=== PATIENT | male | born 1945 | race Caucasian/White ===

== ENCOUNTER 2018-07-07 07:03 | Day surgery (SDC) | payer OTHER, MEDICARE ==
[2018-07-01 11:43] LABS: BASOPHILS % (AUTO) 0.6 % (0-1); EOSINOPHILS # (AUTO) 0.1 X10'3 (0-0.9); EOSINOPHILS % (AUTO) 2.4 % (0-6); LYMPHOCYTES # (AUTO) 1.6 X10'3 (1.1-4.8); LYMPHOCYTES % (AUTO) 26.1 % (21-51); MEAN CORPUSCULAR HEMOGLOBIN 29.4 PG (27.0-31.0); MEAN CORPUSCULAR HGB CONC 33.5 g/dL (33.0-36.5); MEAN CORPUSCULAR VOLUME 87.7 FL (78-98); MEAN PLATELET VOLUME 8.4 FL (7.4-10.4); MONOCYTES # (AUTO) 0.7 X10'3 (0-0.9); NEUTROPHILS # (AUTO) 3.7 X10'3 (1.8-7.7); NEUTROPHILS % (AUTO) 59.9 % (42-75); PRE OP HEMATOCRIT 40.6 % (42.0-52.0); PRE OP HEMOGLOBIN 13.6 g/dL (14.0-17.9); PRE OP PLATELET COUNT 204 X10'3 (140-440); RED BLOOD COUNT 4.63 X10'6 (4.70-6.10); RED CELL DISTRIBUTION WIDTH 16.2 % (11.5-14.5)
[2018-07-01 11:45] LABS: CLARITY,URINE CLEAR (Clear); COLOR,URINE YELLOW (Yellow); GLUCOSE, URINE NEGATIVE (Neg); KETONES,URINE NEGATIVE (Neg); LEUKOCYTE ESTERASE ,URINE NEGATIVE (Neg); NITRITES, URINE NEGATIVE (Neg); OCCULT BLOOD,URINE NEGATIVE (Neg); PROTEIN,URINE NEGATIVE (Neg); UA COLLECTION TYPE CLN CATCH MIDSTREAM; UROBILINOGEN,URINE 0.2 E.U/dL (0.2-1.0)
[2018-07-01 11:59] LABS: ALBUMIN 3.7 G/DL (3.4-5.0); ALBUMIN/GLOBULIN RATIO 1.2 (1.1-1.5); ALKALINE PHOSPHATASE 81 IU/L (46-116); BLOOD UREA NITROGEN 16 MG/DL (7-18); BUN/CREATININE RATIO 15.7 (5.4-32.0); CALCIUM 8.6 MG/DL (8.5-10.1); CHLORIDE 105 MMOL/L (99-107); CREATININE 1.02 MG/DL (0.60-1.10); PRE OP ALT 25 U/L (30-65); PRE OP ANION GAP 7 (8-16); PRE OP AST 20 U/L (10-37); PRE OP BILIRUB, TOTAL 0.5 MG/DL (0.0-1.0); PRE OP GLUCOSE 106 MG/DL (70-104); PRE OP POTASSIUM 4.4 MMOL/L (3.4-5.1); PRE OP SODIUM 142 MMOL/L (135-145); TOTAL CARBON DIOXIDE 30.2 MMOL/L (24-32); TOTAL PROTEIN 6.9 G/DL (6.4-8.2); eGFR 72 ML/MIN
[2018-07-01 12:00] LABS: PRE OP PROTIME 10.4 SECONDS (9.0-12.0)
[2018-07-07] VITALS (12 sets, daily range): BP systolic 124–169; BP diastolic 65–98
[~2018-07-07] VITALS: Ht 185.4 cm; Wt 99.0 kg
[~2018-07-07 07:03] MED LIST: ALBU8HFA PO; AMLO-314 PO; APIX5TAB3 PO; BENA20TA82 PO; DOCUMENT DATE & TIME OF BETA-BLOCKER PO ONE; NAPR220T67 PO; OXYC10TA47 PO; OXYC20TA55 PO; SOTA80TA PO; cefazolin/dext.iso 2gm/100ml 50 ML IV ONE; famotidine 20mg tablet PO ONE; ringers solution, lacted 1,000 ML IV SCH
[2018-07-07] MEDS ORDERED: ringers solution, lacted 1,000 ML IV SCH (09:09)
[2018-07-07] MEDS ORDERED: ondansetron/PF 4mg/2ml inj IV PRN (09:10)
[2018-07-07] MEDS ORDERED: labetalol 20mg/4ml (5mg/ml) syringe IV PRN (09:10)
[2018-07-07] MEDS ORDERED: hydrALAZINE 20mg/ml inj. IV PRN (09:10)
[2018-07-07] MEDS ORDERED: morphine 4 MG/ML inj SYRINge IV PRN (09:10)
[2018-07-07] MEDS ORDERED: fentaNYL/PF 50MCG/1 ML 2ML syringe IV PRN ×2 (09:10)
[2018-07-07] MEDS ORDERED: ceFAZolin 1000mg inj ONE (09:39)
[2018-07-07] MEDS ORDERED: BUPIVAcaine/PF 2.5mg/ml (0.25%) 10ml vial ONE ×2 (09:39→10:59)
[2018-07-07] MEDS ORDERED: sevoflurane 250ml liquid IH ONE (10:02)
[2018-07-07] MEDS ORDERED: propofol inj 20 ML IV ONE (10:06)
[2018-07-07] MEDS ORDERED: dexamethasone sod phosphate 4mg/ml inj. ONE (10:06)
[2018-07-07] MEDS ORDERED: fentaNYL/PF 50MCG/1 ML 2ML syringe ONE (10:06)
[2018-07-07] MEDS ORDERED: LIDOcaine 2% (20mg/ml) 5ml vial ONE (10:06)
[2018-07-07] MEDS ORDERED: neostigmine methylsulfate 1 MG/ML 10ml vial ONE (10:06)
[2018-07-07] MEDS ORDERED: ondansetron/PF 4mg/2ml inj ONE (10:06)
[2018-07-07] MEDS ORDERED: glycopyrrolate 0.2mg/ml inj ONE (10:06)
[2018-07-07] MEDS ORDERED: rocuronium 10mg/ml inj IV ONE (10:06)
[2018-07-07] MEDS ORDERED: labetalol 20mg/4ml (5mg/ml) syringe IV ONE (10:49)
--- NOTE | 2018-07-07 11:19 | NUR ---
Received from OR via , accompanied by Anesthesiologist XAVI and report given by Anesthesiolgist. PATIENT AWAKE, MOVING ALL ETREMITIES,PATIENT VSS CHARTED, RESP EQUAL, DRESSING TO ABD CDI.
[2018-07-07] MEDS: morphine 4 MG/ML inj SYRINge IV PRN ×2 (12:04→12:24)
[2018-07-07] MEDS ORDERED: oxyCODONE SR 10mg (sust. release) tab PO PRN (12:25)
--- NOTE | 2018-07-07 13:25 | NUR ---
PATIENT D/C INSTRUCTIONS GIVEN PATIENT VERBALIZED UNDERSTANDING. PIV DC'D, CATH TIP INTACT, SCD'S INTACT. ABD DRESSING IN PLACE, DI AND SOFT. PATIENT TO PERSONAL VEHICLE WITH ALL PERSONAL BELONGINGS.
== END 2018-07-07 13:29 | disposition home or self-care (01) ==
LOC: PAS 07:03
PROVIDERS: ATTEND Surgery
DX: K42.9 Umbilical hernia without obstruction or gangrene (principal); J45.909 Unspecified asthma, uncomplicated; I10 Essential (primary) hypertension; F41.9 Anxiety disorder, unspecified; M19.90 Unspecified osteoarthritis, unspecified site; E66.9 Obesity, unspecified
CPT/HCPCS: 36415; 49585; 71046; 80053; 81003; 82948; 85025; 85610; 85730; 93005; A6222; A6253; A6449; C1781; J0690; J1100; J2001; J2270; J2405; J2704; J2710; J3010; J3490; J7120; A7000

== ENCOUNTER 2022-03-19 11:09 | Day surgery (SDC) | payer MEDICARE ==
[2022-03-14 11:52] LABS: BASOPHILS # (AUTO) 0.1 X10'3 (0-0.2); BASOPHILS % (AUTO) 1.8 % (0-1); EOSINOPHILS # (AUTO) 0.7 X10'3 (0-0.9); HEMATOCRIT 36.7 % (42.0-52.0); LYMPHOCYTES % (AUTO) 27.9 % (21-51); MEAN CORPUSCULAR HEMOGLOBIN 25.4 PG (27.0-31.0); MEAN CORPUSCULAR HGB CONC 32.7 g/dL (33.0-36.5); MEAN CORPUSCULAR VOLUME 77.6 FL (78-98); MEAN PLATELET VOLUME 8.2 FL (7.4-10.4); MONOCYTES # (AUTO) 0.9 X10'3 (0-0.9); NEUTROPHILS # (AUTO) 3.6 X10'3 (1.8-7.7); NEUTROPHILS % (AUTO) 49.3 % (42-75); PLATELET COUNT 197 X10'3 (140-440); RED BLOOD COUNT 4.72 X10'6 (4.70-6.10); RED CELL DISTRIBUTION WIDTH 17.9 % (11.5-14.5); WHITE BLOOD COUNT 7.2 X10'3 (4.5-11.0)
[2022-03-14 12:01] LABS: ALBUMIN 3.4 G/DL (3.4-5.0); ANION GAP 7 (8-16); BLOOD UREA NITROGEN 23 MG/DL (7-18); BUN/CREATININE RATIO 16.7 (5.4-32.0); CALCIUM 8.3 MG/DL (8.5-10.1); CHLORIDE 107 MMOL/L (99-107); CREATININE 1.38 MG/DL (0.60-1.10); GLUCOSE 95 MG/DL (70-104); POTASSIUM 4.4 MMOL/L (3.5-5.1); SODIUM 141 MMOL/L (135-145); TOTAL CARBON DIOXIDE 27.4 MMOL/L (24-32); eGFR 50 ML/MIN
[2022-03-14 12:04] LABS: APTT 27 SECONDS (22-32)
[~2022-03-19] VITALS: Ht 182.9 cm; Wt 89.1 kg
[~2022-03-19 11:09] MED LIST changes: -DOCUMENT DATE & TIME OF BETA-BLOCKER PO ONE; -cefazolin/dext.iso 2gm/100ml 50 ML IV ONE; -famotidine 20mg tablet PO ONE; -ringers solution, lacted 1,000 ML IV SCH
[2022-03-19] MEDS ORDERED: BACL10TA2 PO (11:49)
[2022-03-19] MEDS ORDERED: SOTA80TA46 PO (11:49)
[2022-03-19] MEDS ORDERED: ASPI-1265 PO (11:49)
[2022-03-19] MEDS ORDERED: FLO0.4C PO (11:49)
[2022-03-19] MEDS ORDERED: CARSR60C PO (11:49)
[2022-03-19] MEDS ORDERED: MIDAZolam 1mg/ml 10ml vial IV ONE (11:55)
[2022-03-19] MEDS ORDERED: fentaNYL/PF 50MCG/1 ML 2ML syringe IV ONE (11:55)
[2022-03-19 12:00] VITALS: BP 169/73
== END 2022-03-19 12:00 | disposition home or self-care (01) ==
LOC: SSTAY O 11:09
PROVIDERS: ATTEND Student in an Organized Health Care Education/Training Program
DX: I48.91 Unspecified atrial fibrillation (principal); Z53.8 Procedure and treatment not carried out for other reasons; I10 Essential (primary) hypertension; Z88.2 Allergy status to sulfonamides; Z79.82 Long term (current) use of aspirin; Z98.890 Other specified postprocedural states; Z79.899 Other long term (current) drug therapy
CPT/HCPCS: 36415; 80048; 85025; 85610; 85730; 93005; A4620; J7030

== ENCOUNTER 2023-06-10 11:10 | Day surgery (SDC) | payer MEDICARE ==
[2023-06-06 10:54] LABS: BASOPHILS # (AUTO) 0.1 X10'3 (0-0.2); BASOPHILS % (AUTO) 1.1 % (0-1); EOSINOPHILS # (AUTO) 0.4 X10'3 (0-0.9); EOSINOPHILS % (AUTO) 5.1 % (0-6); HEMATOCRIT 34.3 % (42.0-52.0); HEMOGLOBIN 10.9 g/dl (14.0-17.9); LYMPHOCYTES # (AUTO) 1.6 X10'3 (1.1-4.8); LYMPHOCYTES % (AUTO) 23.4 % (21-51); MEAN CORPUSCULAR HEMOGLOBIN 26.2 PG (27.0-31.0); MEAN CORPUSCULAR HGB CONC 31.9 g/dL (33.0-36.5); MEAN CORPUSCULAR VOLUME 82.3 FL (78-98); MEAN PLATELET VOLUME 8.1 FL (7.4-10.4); MONOCYTES # (AUTO) 0.8 X10'3 (0-0.9); MONOCYTES % (AUTO) 10.9 % (2-12); NEUTROPHILS # (AUTO) 4.2 X10'3 (1.8-7.7); NEUTROPHILS % (AUTO) 59.5 % (42-75); PLATELET COUNT 270 X10'3 (140-440); RED BLOOD COUNT 4.17 X10'6 (4.70-6.10); RED CELL DISTRIBUTION WIDTH 22.4 % (11.5-14.5)
[2023-06-06 11:03] LABS: ALBUMIN 3.3 G/DL (3.4-5.0); ANION GAP 6 (8-16); BLOOD UREA NITROGEN 40 MG/DL (7-18); BUN/CREATININE RATIO 25.2 (10.0-20.0); CALCIUM 8.6 MG/DL (8.5-10.1); CHLORIDE 105 MMOL/L (99-107); CREATININE 1.59 MG/DL (0.60-1.10); GLUCOSE 89 MG/DL (70-104); POTASSIUM 4.6 MMOL/L (3.5-5.1); SODIUM 139 MMOL/L (135-145); TOTAL CARBON DIOXIDE 28.5 MMOL/L (24-32); eGFR 43 ML/MIN
[2023-06-06 11:06] LABS: APTT 32 SECONDS (22-32); INR 1.1 INR; PROTHROMBIN TIME 11.9 SECONDS (9.0-12.0)
[2023-06-06 16:40] LABS: ACANTHOCYTES FEW; ANISOCYTOSIS 3+; ELLIPTOCYTES 1+; HYPOCHROMASIA 1+; PLATELET ESTIMATE NORMAL; POLYCHROMASIA FEW; SPHEROCYTES FEW
[2023-06-10] VITALS (9 sets, daily range): BP systolic 90–132; BP diastolic 50–74; PULSE 64–112; RESP 12; TEMP 98.2; O2SAT 100
[~2023-06-10] VITALS: Ht 182.9 cm; Wt 77.7 kg
[~2023-06-10 11:10] MED LIST changes: -ALBU8HFA PO; -AMLO-314 PO; +ASPI-1265 PO; +BACL10TA2 PO; +CARSR60C PO; +FLO0.4C PO; +FURO-150 PO; +IBAN150T21 PO; +METO-384 PO; -NAPR220T67 PO; -OXYC20TA55 PO; +POTA-192 PO; -SOTA80TA PO
[2023-06-10] MEDS ORDERED: MIDAZolam 1mg/ml 10ml vial IV ONE (11:35)
[2023-06-10] MEDS ORDERED: normal saline 1000ml 1,000 ML IV SCH (11:35)
[2023-06-10] MEDS ORDERED: fentaNYL/PF 50MCG/1 ML 2ML syringe IV ONE (11:35)
[2023-06-10] MEDS ORDERED: SOTA80TA (11:36)
== END 2023-06-10 13:50 | disposition home or self-care (01) ==
LOC: SSTAY O 11:10
PROVIDERS: ATTEND Student in an Organized Health Care Education/Training Program
DX: I48.91 Unspecified atrial fibrillation (principal); I10 Essential (primary) hypertension; Z88.2 Allergy status to sulfonamides; Z88.8 Allergy status to other drugs, medicaments and biological substances; Z79.899 Other long term (current) drug therapy; Z79.01 Long term (current) use of anticoagulants
CPT/HCPCS: 36415; 80048; 85025; 85610; 85730; 92960; 93005; J2250; J3010; J7030; 85008; A4620

== ENCOUNTER 2025-01-25 20:39 | Inpatient (IN) | payer MEDICARE ==
[~2025-01-25] VITALS: Ht 182.9 cm; Wt 95.6 kg
[~2025-01-25 20:39] MED LIST changes: -ASPI-1265 PO; -BACL10TA2 PO; -CARSR60C PO; -FLO0.4C PO; -METO-384 PO; -OXYC10TA47 PO; -POTA-192 PO; +SOTA80TA; +TAMS-55 PO
--- NOTE | 2025-01-25 20:47 | ELECTROCARDIOGRAPH REPORT ---
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 Thompson Washington Measurements Intervals [place] Rate: 103 P: 0 [place]: 0 QRS: 151 QRSD: 70 T: 0 QT: 470 QTc: 616 Interpretive Statements Atrial fibrillation Ventricular premature complex Anterior infarct, age indeterminate Prolonged QT interval Electronically Signed On 01-25-2025 21:23:[address] Thompson Washington Please click the below link to view image of tracing.
[2025-01-25] MEDS ORDERED: diltiazem-NS 100mg/100ml 100 ML IV ONE (20:55)
[2025-01-25] MEDS: diltiazem-NS 100mg/100ml 100 ML IV SCH (21:34)
[2025-01-25 21:38] LABS: RED CELL DISTRIBUTION WIDTH 22.4 % (11.5-14.5)
[2025-01-25 21:39] LABS: MEAN PLATELET VOLUME 8.7 FL (7.4-10.4)
[2025-01-25 21:49] LABS: CREATININE 1.32 MG/DL (0.60-1.10); PRO BRAIN NATRIURETIC PEPTIDE 7902 PG/ML (0-450); TOTAL CARBON DIOXIDE 34.1 MMOL/L (24-32); eCRCL 45 ML/MIN; eGFR 53 ML/MIN
[2025-01-25 22:04] LABS: ELLIPTOCYTES 1+; LARGE PLATELETS FEW; PLATELET ESTIMATE NORMAL
--- NOTE | 2025-01-25 23:35 | Physician Documentation ---
History of Present Illness ~ Chief Complaint: Weakness Stated Complaint: XFER Time Seen by MD: 23:32 OK to notify your PCP?: Yes Source: patient, RN/MD, EMS, RN notes reviewed, EMS notes reviewed, old records Mode of Arrival: EMS Exam Limitations: no limitations HPI This patient was a transfer from [place]. He has a multiple medical problems. He was found to have rapid AFib with RVR as well as some heart failure. Patient is heart rates were in the 130s to 140s. Patient was started on a Cardizem drip. BNP was 5000 today he has signs [place] [address]. Patient has been complaining of generalized weakness, fatigue, shortness of breath, and edema. Patient today saw his primary care doctor for these issues, which he states have been progressively worsening over the past 4- 6 months. Today he went home, felt significantly worse, and came into the hospital at which time he was found to have a high blood pressure of 180 sy stolic. Patient is normally not on oxygen, but his oxygen saturation was on 4 L at 94%. His policy specialist is Dr. Cohen who stated there was no signs of infection. Patient was then transferred to our facility for further workup and care. His troponin was negative. He denies any chest pain, abdominal pain, or recent illnesses. Most recent echocardiogram on 11/29/2024 showed a dilated right atrium documented is moderate, LVEF of 60%, right ventricle with normal size with borderline dilation and decrease systolic function without collapse. Patient was put in bed seven. Day of Onset: Jan 25, 2025 Medication Reconciliation Allergies: Coded Allergies: Sulfa (Sulfonamide Antibiotics) (Verified Allergy, Unknown, RASH, 07/01/18) Scheduled Apixaban (Eliquis), 1 TAB PO DAILY, (Reported) Ascorbic Acid (Vitamin C), 1 TAB PO DAILY, (Reported) Benazepril HCl (Benazepril HCl), 1 TAB PO DAILY, (Reported) Budesonide/Glycopyr/Formoterol (Breztri Aerosphere Inhaler), 2 PUFFS INH Q12H, (Reported) Furosemide (Lasix), 1 TAB PO DAILY, (Reported) Ibandronate Sodium (Ibandronate Sodium), 1 TAB PO Q30D, (Reported) Montelukast Sodium (Montelukast Sodium), 1 TAB PO DAILY, (Reported) Silver Sulfadiazine (Silvadene), 1 APPLIC TOP DAILY, (Reported) Sotalol Hcl* (Betapace*), 80 MG PO BID, (Reported) Tamsulosin Hcl* (Flomax*), 1 CAP PO BID, (Reported) [calcium], 600 MG PO DAILY, (Reported) [pro air respiclick], 2 PUFF INH Q4H, (Reported) Scheduled PRN Buprenorphine Hcl (Buprenorphine Hcl), 2 TAB SL DAILY PRN for pain, (Reported) Discontinued Medications Apixaban (Eliquis), 1 TAB PO BID, (Reported) Discontinued Reason: patient no longer taking Benazepril Hcl* (Lotensin*), 1 TAB PO DAILY, (Reported) Discontinued Reason: patient no longer taking Furosemide* (Lasix*), 1 TAB PO DAILY, (Reported) Discontinued Reason: patient no longer taking Ibandronate Sodium (Ibandronate Sodium), 1 TAB PO Q30D, (Reported) Discontinued Reason: patient no longer taking Sotalol Hcl (Sotalol), 0.5 BID, (Reported) Discontinued Reason: patient no longer taking Tamsulosin Hcl* (Flomax*), 1 TAB PO DAILY, (Reported) Discontinued Reason: patient no longer taking Past Medical History Past Medical History: Seizures, Atrial Fibrillation, Congestive Heart Failure, High Cholesterol, Hypertension, Asthma, Anemia, Acute Kidney Injury, Anxiety Past Surgical History: orthopedic surgeries, tonsillectomy Smoking Status: Never smoker Alcohol Use: None Drug Use: none Review of Systems All Other Systems at this time: Reviewed and Negative Respiratory: Reports: shortness of breath Cardiovascular: Reports: edema; Denies: chest pain Physical Exam Vital Signs: RN Vital Signs have been reviewed: Yes, Temperature: 98.0, Source: Oral, Heart Rate: 107, Respiratory Rate: 26, BP: 136/115, Pulse Oximetry: 100, Weight: 95.600 Oxygen Flow Rate: 2.0 Physical Exam General: The patient is well developed, well nourished, nontoxic appearing and is in no acute distress. Skin: Generalized anasarca with some serous weeping noted primarily from the upper and lower extremities. Thick chronic venous stasis changes of the skin. No open wounds or bleeding. Chronic atrophic skin changes overlying the lower extremities. Skin otherwise pink, warm and dry with no rashes. HEENT: Head was normocephalic and atraumatic. Eyes - pupils equal, round, reactive to light and accommodation. Extraocular movements were intact. Conjunctivae were nonicteric. The mouth and oropharynx were clear with moist mucous membranes. There were no pharyngeal exudates or erythema. Neck: Supple and nontender. There was no jugular venous distention, lymphadenopathy, thyromegaly or masses. Chest: Clear to auscultation bilaterally without wheezes, rales or rhonchi. No accessory muscle use. No dullness to percussion. Heart: Rapid with irregularly irregular rhythm. S1, S2. No murmurs. Palpation of the chest wall was normal. No rubs or thrills. Abdomen: Soft, nontender and nondistended. Positive bowel sounds. No guarding or rebound. No hepatosplenomegaly or palpable masses. Extremities: No cyanosis, clubbing or edema. The patient moves all extremities. Pulses were equal and symmetric. Neurologic: Cranial nerves II-XII were intact. Sensation was intact to light touch throughout. Motor strength was 5/5 in all four extremities. Deep tendon reflexes were intact in both upper and lower extremities. Psychologic: The patient was oriented to person, place and time. The patient demonstrated appropriate judgement and insight. Progress Progress Note 2351: Paged Hospitalist 0004: Case discussed with hospitalist who agrees to evaluate patient for admission. Results/Orders Reviewed/noted all lab results: Yes Results/Orders Orders - RIAZ CAMPOS MD Monitor (01/25/25 20:42) Saline Lock (01/25/25 20:42) Oxygen (01/25/25 20:42) Electrocardiogram (01/25/25 20:42) Page Hospitalist (01/25/25 23:51) Fill Out Med Reconciliation (01/25/25 23:51) Completed Orders - RIAZ CAMPOS MD Cbc/Diff (01/25/25 20:42) BMP (01/25/25 20:42) PBNP (01/25/25 20:42) Electrocardiogram (01/25/25 20:42) Hs Troponin I W Calculations (01/25/25 20:42) Hs Troponin I W Calculations (01/25/25 22:42) Hs Troponin I W Calculations (01/25/25 23:42) Hgb A1c (01/25/25 21:01) Medications Received in ER Medications (Trade) Dose Ordered Sig/Kori Route PRN Reason Start Time Stop Time Status Last Admin Dose Admin Diltiazem HCl 100 ml @ 5 mls/hr Q20H IV 01/25/25 21:00 01/26/25 16:59 01/25/25 21:34 5 MLS/HR Vital Signs 01/25/25 01/25/25 01/25/25 01/25/25 21:00 21:34 21:43 22:36 Temp 98.0 98.0 98.0 Pulse 91 98 104 106 Resp 18 16 17 B/P (MAP) 150/86 144/79 (100) 127/88 (101) Pulse Ox 100 99 100 O2 Flow Rate 2.0 2.0 2.0 01/25/25 01/25/25 22:43 22:45 Pulse 107 Resp 26 B/P (MAP) 136/115 Laboratory Tests Test 01/25/25 21:01 01/25/25 23:16 White Blood Count 6.5 Red Blood Count 5.39 Hemoglobin 10.1 L Hematocrit 33.5 L Mean Corpuscular Volume 62.0 L Mean Corpuscular Hemoglobin 18.7 L Mean Corpuscular Hemoglobin Concent 30.2 L Red Cell Distribution Width 22.4 H Platelet Count 157 Mean Platelet Volume 8.7 Neutrophils (%) (Auto) 58.4 Lymphocytes (%) (Auto) 24.9 Monocytes (%) (Auto) 13.4 H Eosinophils (%) (Auto) 2.1 Basophils (%) (Auto) 1.2 H Neutrophils # (Auto) 3.8 Lymphocytes # (Auto) 1.6 Monocytes # (Auto) 0.9 Eosinophils # (Auto) 0.1 Basophils # (Auto) 0.1 CBC Comment Platelet Estimate Normal Large Platelets Few Red Blood Cell Morphology Perf Polychromasia Few Hypochromasia 2+ Basophilic Stippling Spherocytes Few Target Cells Few [place] Cells Elliptocytes 1+ Schistocytes Few Sodium Level 139 Potassium Level 4.8 Chloride Level 99 Carbon Dioxide Level 34.1 H Anion Gap 6 L Blood Urea Nitrogen 30 H Creatinine 1.32 H Estimated GFR/1.73 m2 53 BUN/Creatinine Ratio 22.7 H Glucose Level 90 Hemoglobin A1c 6.1 Calcium Level 8.4 L Troponin I High Sensitivity 70 71 Pro-B-Type Natriuretic Peptide 7902 H Albumin 2.6 L Chemistry Comments Troponin I High Sens Percent Delta 1 Troponin I Hi Sens Absolute Change 1 Re-Evaluation Re-Evaluation : Re-Evaluation: Improved Progress Patient was seen and examined. Patient was given reassurance. Patient was transferred from [facility] for generalized weakness fatigue. Patient arrived in a Cardizem drip for rapid AFib with a RVR. Heart rates currently at 1:10 a.m. upon arrival on Cardizem drip was continued. Patient's laboratory work shows some microcytic anemia with a hemoglobin of 10 and hematocrit of 33 with a MCV of 62. Chemistry shows negative troponins but there is some dehydration with a BUN of 30 and creatinine 1.32 and proBNP is elevated 7900. Coagulation shows a PT of 15.1 urinalysis was reassuring and within normal limits. Patient was then admitted to the hospitalist service for further workup and care. Etiologies for the rapid AFib with RVR were considered such as medical noncompliance, electrolyte abnormalities, ischemic heart disease, infectious etiologies such as pneumonia were all considered. Pulmonary embolism was also considered Continuous conveyor monitor interpretation shows rapid AFib with RVR heart rate 110s, abnormal, my interpretation. Pulse oximetry monitor interpretation shows 97% on 1 L oxygen, abnormal, my i nterpretation. 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 Riaz Campos Measurements Intervals [place] Rate: 103 P: 0 [place]: 0 QRS: 151 QRSD: 70 T: 0 QT: 470 QTc: 616 Interpretive Statements Atrial fibrillation Ventricular premature complex Anterior infarct, age indeterminate Prolonged QT interval Electronically Signed On 01-25-2025 21:23:[address] Riaz Campos Please click the below link to view image of tracing. EKG Date and Time:01/25/252043 Electronically Signed by: RIAZ CAMPOS MD Date and Time: 01/25/252122 NO PRIMARY CARE PROVIDER~ cc: ~ Heart Score: Heart Score Response (Comments) Value History Slightly Suspicious 0 EKG Repolarization Disturb 1 Age >65 2 Risk Factors >3 or Hx ASHD 2 Troponin Normal limit 0 Total 5 Medical Decision Making Additional info obtained from: old records Differential Dx:Considerations: Include: anemia, CVA, dehydration, dysrhythmia, electrolyte imbalance, encephalopathy, hypoglycemia, hypotension, hypovolemia, myocardial infarction, pulmonary embolus, renal failure, other Departure Time of Disposition: 23:51 Disposition: ADMITTED INPATIENT Admitted to Inpatient Unit: yes, to hospitalist Admission Level of Care: PCU with Tele Impression: Primary Impression: Atrial fibrillation with RVR Additional Impressions: Acute on chronic heart failure Qualified Codes: I50.813 - Acute on chronic right heart failure Accelerated hypertension Hypoxia Microcytic anemia Condition: Guarded Referrals: NO PRIMARY CARE PROVIDER (PCP) Education Educated: Patient Educated regarding: diagnosis Critical Care Note Total Time (mins): 33 Critical Care Note The very real possibility of a deterioration of this patient's condition required the highest level of my preparedness for sudden, emergent intervention. I provided critical care services, which included medication orders, frequent reevaluations of the patient's condition and response to treatment, ordering and reviewing test results, and discussing the case with various consultants. Excludes time spent performing separately billable procedures. The critical care time associated with the care of the patient was.33 min Signature Scribe Signature: Scribed for Riaz Campos MD by Yamilet Joseph. 01/25/25 23:51 Attestation: The note accurately reflects work and decisions made by me.Riaz Campos MD 01/26/25 03:32 RIAZ CAMPOS MD Jan 25, 2025 23:35
[2025-01-26] VITALS (9 sets, daily range): BP systolic 80–126; BP diastolic 50–73; PULSE 67–98; RESP 12–22; TEMP 96.6–98.4; O2SAT 95–100
[2025-01-26] MEDS: COMMUNICATION ORDER 1 EA MISC MC ONE ×2 (00:24)
[2025-01-26] MEDS ORDERED: magnesium Cl slow-release 64mg tablet PO PRN (00:45)
[2025-01-26] MEDS ORDERED: potassium Cl 40MEQ/1/2NS 520ml 520 ML IV PRN (00:45)
[2025-01-26] MEDS ORDERED: magnesium sulf-water 4G/100mL 100 ML IV PRN (00:45)
[2025-01-26] MEDS ORDERED: magnesium sulf-water 2g/50mL 50 ML IV PRN (00:45)
[2025-01-26] MEDS ORDERED: potassium Cl 20 mEq SR tablet PO PRN ×2 (00:45)
--- NOTE | 2025-01-26 01:08 | HISTORY AND PHYSICAL-Residence ---
History & Physical Providers to CC Resident Creating Document: CONRADODEVIN TREJO, RES ~ History of Present Illness Reason for Admit\Complaint: generalised edema, SOB, A.fib History of Present Illness 89-year-old male with a past medical history of hypotension, asthma, atrial fibrillation, anemia, chronic kidney disease, edema of lower limbs, stasis dermatitis lower extremities, has presented to the ED of [place] with chief complaints of generalized swelling and shortness of breath. This patient is a transfer from [place]. Patient reports that his scrotum swelled up to a point that he was unable to walk since a week. He was found to have rapid AFib with RVR in [place]. Patient is normally not on oxygen, but his oxygen saturation was on 4 L at 94%. Patient was then transferred to our facility for further workup and care. Patient currently in sinus rhythm. His troponin was negative. He denies any chest pain, abdominal pain, nausea, vomiting, palpitations, headache, blurring of vision, burning micturition, melena. Allergies: Coded Allergies: Sulfa (Sulfonamide Antibiotics) (Verified Allergy, Unknown, RASH, 07/01/18) Home Medications Home Medications Active Reported Sotalol (Sotalol Hcl) 80 Mg Tablet 0.5 BID Lasix* (Furosemide) 20 Mg Tablet 1 Tab PO DAILY Ibandronate Sodium 150 Mg Tablet 1 Tab PO Q30D Flomax* (Tamsulosin HCl) 0.4 Mg Cap.sr.24h 1 Tab PO DAILY Eliquis (Apixaban) 5 Mg Tablet 1 Tab PO BID Lotensin* (Benazepril HCl) 20 Mg Tablet 1 Tab PO DAILY Past Social History Alcohol Use: None Drug Use: None ROS All Other Systems: Reviewed and Negative ROS Constitutional: No fever, chills, dizziness, generalized edema present, scrotum is swollen up Eyes: No pain, erythema, discharge, blurring of vision ENT: No sore throat, epistaxis, tinnitus Cardiovascular:No chest pain, palpitations, syncope, , paroxysmal nocturnal dyspnea Respiratory: No hemoptysis. Gastrointestinal: no nausea , no vomiting. Reports constipation, no hematemesis, melena or fresh blood Musculoskeletal: chronmic edema. Integumentary: No change in skin, hair, No swelling, scars present on lower right foot, no abrasions Neurologic: No weakness,No headache, neck pain, numbness of left foot Psychiatric: No delusions, depression, loss of interest in normal activity or change in sleep pattern, hallucinations, suicidal ideations Endocrine: , no weakness. polydipsia, polyuria, change in appetite, heat or cold intolerance, sweating, dry skin Hematological: No bleeding, petechiae, bruising Allergies: No asthma or urticaria Respiratory: Reports: shortness of breath Cardiovascular: Reports: edema; Denies: chest pain Exam Vitals: Vital Signs Date Time Temp Pulse Resp B/P (MAP) Pulse Ox O2 Delivery O2 Flow Rate FiO2 01/25/25 22:45 26 01/25/25 22:43 107 01/25/25 22:36 98.0 100 2.0 General: Awake , alert and oriented to time,place, person, not in acute distress HEENT: Atraumatic, normocephalic, PEERLA, anicteric sclera ; pink conjunctiva, m oist mucosa membrane Neck: Trachea midline. Supple, normal range of motion, no JVD Cardiac: S1, S2 heard, Regular rate and rhythm, without murmurs, rubs, or gallops. Chest and Respiratory: Equal breath sounds bilaterally, patient on oxygen & no rhonchi , Chest wall is symmetric and without deformity. Abdomen: Abdomen symmetric, non-distended, no tenderness , no guarding or rebound tenderness,normal bowel sounds , normoactive, no hepatosplenomegaly MSK: full range of motion of all extremities. There is no joint pain or joint swelling or joint erythema. There is no muscle pain or tenderness. Extremities: warm, No cyanosis, clubbing edema of lower extremities, discoloration of lower extremity, peripheral pulses well felt Neurological: Speech is clear, alert, and oriented x 4. No motor or sensory deficit, deep tendon reflexes normal, cerebellar intact. Cranial nerves II-XII intact. Skin: Warm and dry Psychiatry: Affect and mood are normal Diagnostic Data Last Recorded Lab Results: 01/25/25210001/26/25 0305 Additional Plan Atrial fibrillation with RVR- Patient currently in sinus rhythm. Current heart rate-100 Patient currently on diltiazem IV drip Patient does not complain of any palpitations or chest pain Acute exacerbation of CHF with preserved ejection fraction- Echocardiogram done in November 2024- LVEF 60%,Right ventricle normal size with borderline dilation, decreased systolic function without collapse. ProBNP-7902. Patient currently on 2L oxygen, does not use oxygen at home. Anasarca likely secondary to CHF exacerbation. Patient given 60 mg Lasix IV now Continue 40 mg b.i.d. from tomorrow. Acute hypoxemic respiratory failure- Patient does not use oxygen at home Currently on 2 L of oxygen. Chronic microcytic hypochromic anemia- Hb- 10.1 MCV-62 Occult blood stool ordered. Follow up iron studies ordered. Follow up Chronic kidney disease- Creatinine1.32 BUN-30 Urine lytes ordered Code Status: Full Code Line/tube: PIV DVT prophylaxis: heparin Nutrition: Heart healthy PT: Yes Devin Simmons PGY-1 Addendum I personally reviewed the chart, labs and imaging and reviewed the patient with the team. I agree with the assessment and plan as documented by the resident. Patient was seen through remote audio-visual assessment through HIPAA compliance setup. Date of Service: Jan 26, 2025 Billing Provider: HEATHER DOYLE MD, PREETHI, RES Jan 26, 2025 01:08 HEATHER DOYLE MD Jan 26, 2025 21:40
[2025-01-26] MEDS ORDERED: APIX5TAB3 PO (01:18)
[2025-01-26] MEDS ORDERED: calcium PO (01:19)
[2025-01-26] MEDS ORDERED: ASCO-482 PO (01:20)
[2025-01-26] MEDS ORDERED: FURO-149 PO (01:21)
[2025-01-26] MEDS ORDERED: SILV20CR13 TOP (01:21)
[2025-01-26] MEDS ORDERED: ALBUTEROL INH (01:23)
[2025-01-26] MEDS ORDERED: MONT-40 PO (01:23)
[2025-01-26] MEDS ORDERED: SOTA80TA73 PO (01:24)
[2025-01-26] MEDS ORDERED: BUDE10.7 INH (01:24)
[2025-01-26] MEDS ORDERED: TAMS-55 PO (01:25)
[2025-01-26] MEDS ORDERED: BUPR8TAB4 SL (01:26)
[2025-01-26] MEDS ORDERED: BENA20TA83 PO (01:26)
[2025-01-26] MEDS ORDERED: BUPRENORPHINE HCL 8 MG SL PRN (01:30)
[2025-01-26 02:00] LABS: INR 1.5 INR
[2025-01-26 02:02] LABS: LEUKOCYTE ESTERASE ,URINE NEGATIVE (Neg); NITRITES, URINE NEGATIVE (Neg); OCCULT BLOOD,URINE TRACE-INTACT (Neg)
[2025-01-26 02:03] LABS: UA COLLECTION TYPE FOLEY CATH
[2025-01-26] MEDS: furosemide 10 MG/1 ML 10ml inj IV ONE (02:04)
[2025-01-26 02:11] LABS: HYALINE CASTS 0-3 /LPF (NEGATIVE); MUCUS STRANDS FEW /LPF (Neg); SQUAMOUS EPITHELIAL CELL,UR FEW /LPF (FEW)
[2025-01-26] MEDS: HYDROcodone/acetaminophen 5mg/325mg tablet PO PRN (02:21)
[2025-01-26 03:33] LABS: OSMOLALITY UA 356.0 MOSM/K (50-1400)
[2025-01-26 04:00] LABS: CREATININE,URINE RANDOM 14.0 MG/DL
[2025-01-26] MEDS: diltiazem-NS 100mg/100ml 100 ML IV SCH (04:50)
[2025-01-26] MEDS: diltiazem 30mg tablet PO ONE (05:25)
[2025-01-26] MEDS ORDERED: heparin, porcine 5000 units/ml vial SQ SCH (08:00)
[2025-01-26] MEDS: K and/or MAG REPLACEMENT MC SCH (08:00)
[2025-01-26] MEDS: docusate sod 100mg capsule PO SCH (09:13)
[2025-01-26] MEDS: SODIUM ZIRCONIUM CYCLOSILICATE 10 GM POWD.PACK PO ONE (10:32)
[2025-01-26] MEDS ORDERED: NORMAL SALINE IV ONE (11:35)
[2025-01-26] MEDS: PERFLUTREN PROTEIN-A MICROSPHR (Optison) 0.22 MG/ML 3ML VIAL IV ONE (11:35)
[2025-01-26] MEDS: iron dextran complex inj. 25 MG in normal saline 100ml IV soln 99.5 ML IV ONE (11:35)
[2025-01-26] MEDS ORDERED: IRON DEXTRAN COMPLEX IV ONE (11:35)
[2025-01-26] MEDS: iron dextran complex inj. 25 MG in normal saline 100ml IV soln 100 ML IV ONE (12:52)
[2025-01-26] MEDS: acetaZOLAMIDE IV 500mg inj IV ONE (12:53)
[2025-01-26] MEDS: mag hydrox/Alum hydrox/simeth 30ml oral suspension PO PRN (13:03)
[2025-01-26] MEDS: EMPAGLIFLOZIN 10 MG TABLET PO SCH (13:32)
[2025-01-26] MEDS: iron dextran complex inj. 75 MG in normal saline 100ml IV soln 100 ML IV ONE (14:50)
[2025-01-27] VITALS (9 sets, daily range): BP systolic 95–139; BP diastolic 51–73; PULSE 68–91; RESP 12–23; TEMP 97.1–98.6; O2SAT 92–98
[2025-01-27 07:43] LABS: MEAN PLATELET VOLUME 9.0 FL (7.4-10.4); RED CELL DISTRIBUTION WIDTH 23.2 % (11.5-14.5)
[2025-01-27] MEDS ORDERED: furosemide 10 MG/1 ML 10ml inj IV SCH (08:00)
[2025-01-27] MEDS: iron dextran complex inj. 100 MG in normal saline 100ml IV soln 100 ML IV SCH (08:02)
[2025-01-27] MEDS: magnesium hydroxide 30ml (MOM) UD suspension PO PRN (08:02)
--- NOTE | 2025-01-27 08:24 | RADIOLOGY REPORT ---
CHEST RADIOGRAPH Indication: resp failire, chf Technique: Single frontal view of the chest was obtained Comparison: CHEST 1 VIEW on DOS: 01/25/25 FINDINGS: Lines and Tubes: None Lungs: No focal consolidation. Pleura: No effusion. No pneumothorax. Cardiomediastinal contours: Cardiomegaly. Bones: No acute osseous abnormality. IMPRESSION: Cardiomegaly with CHF
[2025-01-27 08:39] LABS: CHOL/HDL RATIO 3.4 (0.00-4.99); CREATININE 1.54 MG/DL (0.60-1.10); LDL CHOLESTEROL 61 MG/DL (50-100); PRO BRAIN NATRIURETIC PEPTIDE 5370 PG/ML (0-450); TOTAL CARBON DIOXIDE 33.4 MMOL/L (24-32); eCRCL 44 ML/MIN; eGFR 44 ML/MIN
[2025-01-27] MEDS ORDERED: ceFAZolin/D5W- 1GM premix 50 ML IV ONE (16:25)
[2025-01-27 16:51] LABS: CREATININE 1.65 MG/DL (0.60-1.10); TOTAL CARBON DIOXIDE 37.7 MMOL/L (24-32); eCRCL 41 ML/MIN; eGFR 41 ML/MIN
[2025-01-27] MEDS ORDERED: iron dextran complex inj. 25 MG in normal saline 50ml IV soln 50 ML IV ONE (17:15)
[2025-01-27] MEDS ORDERED: normal saline 1000ml 1,000 ML IV SCH (17:15)
[2025-01-27] MEDS ORDERED: iron dextran complex inj. 75 MG in normal saline 100ml IV soln 100 ML IV ONE (17:15)
--- NOTE | 2025-01-27 17:19 | RADIOLOGY REPORT ---
Indication: edema of scrotum Technique: Real-time ultrasound images through the scrotum. Comparison: None Findings: Right testicle measures 2.6 x 2 x 2.9 cm. It has normal echogenicity and echotexture, with no focal solid or cystic mass. There is normal flow on color Doppler, with normal waveforms. Heterogeneous deepika earance of the right epididymis. Left testicle measures 2.6 x 2.8 x 2 cm. It has normal echogenicity and echotexture, with no focal s olid or cystic mass. There is normal flow on color Doppler, with normal waveforms. The left epididyma l head measures 10 mm, and has no focal masses. There is extensive bilateral scrotal edema. Moderate to large right hydrocele. Moderate left hydrocel e Impression: Extensive bilateral scrotal edema. Moderate to large right and moderate left hydroceles. Heterogeneous appearance right
--- NOTE | 2025-01-27 17:46 | PROGRESS NOTE ---
Daily Progress Note Providers to CC ~ Appiah-Non Protocol [place] Indications Met/Not Met: F/C Indications Met Antibiotic Timeout Antibiotic Ordered?: No Subjective No acute events overnight. Patient examined at bedside. No new complaints. Patient denies chest pain, sob, palpitations, n/v/d. Reports lower abdominal pain. Tele AFib in 80s. Vss, labs notable for uptrending Cr. Testicular US shows extensive b/l scrotal edema, moderate to large right and moderate left hydroceles with normal flow on Doppler, no focal masses. 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, no focal deficits Musculoskeletal: No paraspinal muscle tenderness, no muscle spasm Skin: Warm and intact Coagulation Studies Laboratory Tests Test 01/26/25 01:27 Prothrombin Time 15.1 SECONDS (9.0-12.0) H INR International Normalized Ratio 1.5 INR Coagulation Comments Problem\Assessment\Plan Assessment & Plan Atrial fibrillation w/ RVR -Eliquis, metoprolol tart, amiodarone Acute decompensated diastolic heart failure, LVEF 60% Acute hypoxic respiratory failure likely 2/2 CHF Prerenal ALEXYS on CKD- not POA Acute urinary retention- POA Echocardiogram done in November 2024- LVEF 60%,Right ventricle normal size with borderline dilation, decreased systolic function without collapse. 01/27: pBNP 7902 to 5370, 2L O2, anasarca, started on diuretics which are discontinued due to worsening renal function; consulted shoder filler Dr. Blancas TSH wnl, afebrile, serum lytes unremarkable, Well's score 1.5 Testicular US shows extensive b/l scrotal edema, moderate to large right and moderate left hydroceles with normal flow on Doppler, no focal masses. Anemia, microcytic Fe-deficiency anemia 01/27: start iron infusion Code Status: Full Code DVT prophylaxis: Eliquis Date of Service: Jan 27, 2025 Billing Provider: RISHI ESCUDERO Common Visit Codes: [id number] INP/OBS CARE(HIGH) RISHI ESCUDERO Jan 27, 2025 17:46
[2025-01-27 17:49] LABS: LEUKOCYTE ESTERASE ,URINE SMALL (Neg); NITRITES, URINE NEGATIVE (Neg); OCCULT BLOOD,URINE SMALL (Neg)
--- NOTE | 2025-01-27 17:54 | RADIOLOGY REPORT ---
Indication: lower abdominal pain, scrotal edema Technique: CT axial images of the abdomen and pelvis are obtained without contrast. Coronal and sagit gemma reformats were obtained. Radiation Dose Information: CTDI volume is 26 mGy. Dose-length product is 1444 mGy*cm Comparison: None FINDINGS: There is limited interpretation of the abdomen and pelvis without administration of intravenous contr ast. Cardiomegaly. Moderate size pericardial effusion. Moderate bilateral pleural effusions bibasilar at electasis/ consolidation. Adrenal glands, spleen unremarkable in shape. Pancreas unremarkable in shape. Liver unremarkable in shape. No CT evidence for cholelithiasis. No hydronephrosis. Nonobstructing right renal calculus measuring 3 mm. Stomach is nondistended. Small bowel loops normal in caliber. Large volume stool within the colon. Colonic diverticular disease. Normal appendix. Small amount of ascites fluid. Abdominal aortic atherosclerotic disease. Bladder partially distended. Appiah catheter. Soft tissue edema /anasarca. Extensive scrotal edema. Bilateral varicoceles. Right femur intramedullary rossana, intertrochanteric screw. Moderate bilateral sacroiliac degenerative joint disease. Severe thoracolumbar degenerative disc disease. Chronic L2 and L3 compression deformi ties with 30% loss height. Chronic T12 compression deformity 20% loss height. Chronic L1 compression deformity with 20% loss height. IMPRESSION: Limited evaluation without contrast. Soft tissue edema/ anasarca. Extensive scrotal edema bilaterally. Bilateral varicoceles. Large volume stool within the colon. Colonic diverticular disease. Moderate bilateral pleural effusions. Moderate size pericardial effusion. Bibasilar atelectasis / consolidation. Other findings as described.
[2025-01-27] MEDS: PERFLUTREN PROTEIN-A MICROSPHR (Optison) 0.22 MG/ML 3ML VIAL IV ONE (18:00)
[2025-01-27 18:13] LABS: UA COLLECTION TYPE NON-SPECIFIED
[2025-01-27 18:19] LABS: SQUAMOUS EPITHELIAL CELL,UR FEW /LPF (FEW)
[2025-01-27 18:20] LABS: CREATININE,URINE RANDOM 38.7 MG/DL; GLUCOSE,URINE RANDOM 103.0 MG/DL; TOTAL PROTEIN,URINE RANDOM 18.1 MG/DL
[2025-01-27 19:14] LABS: ABG BASE EXCESS 8.8 mmol/L (-2.0-3.0); ABG HCO3 34.7 mmol/L (21.0-28.0); ABG OXYGEN SATURATION 98.2 % (94.0-98.0); ABG PCO2 (T) 54.9 mmHg (35.0-48.0); ABG PH (T) 7.418 (7.350-7.450); ABG PO2 (T) 107.3 mmHg (83.0-108.0); ALLEN'S TEST POSITIVE; FCOHb 1.2 % (0.5-1.5); FHHb 1.8 % (0.0-5.0); FIO2 32.0 mmHg/%; FLOW 3 L/min; FMetHb 0.3 % (0.0-1.5); FO2Hb 96.7 % (94.0-98.0); MODE NASAL CANNULA; PATIENT TEMPERATURE 37.0; TOTAL HEMOGLOBIN 9.9 G/dl (13.5-17.5)
[2025-01-28] VITALS (9 sets, daily range): BP systolic 108–128; BP diastolic 54–77; PULSE 70–85; RESP 12–20; TEMP 97–97.8; O2SAT 93–100
[2025-01-28] MEDS ORDERED: ceFAZolin/D5W- 1GM premix 50 ML IV SCH
--- NOTE | 2025-01-28 00:14 | CONSULTATION REPORT ---
Consult Providers to CC ~ History of Present Illness Reason for Admit\Complaint: Generalized edema History of Present Illness An 89-year-old man with a history of atrial fibrillation, chronic kidney disease (CKD), chronic lower extremity edema, anemia, and hypotension presented with worsening generalized swelling, including scrotal edema, and shortness of breath. He was found to be in atrial fibrillation with rapid ventricular response (RVR) and hypoxemia requiring supplemental oxygen. He was transferred for higher level of care. Home medications include sotalol, furosemide, ibandronate, tamsulosin, apixaban, and benazepril. Allergies: Coded Allergies: Sulfa (Sulfonamide Antibiotics) (Verified Allergy, Unknown, RASH, 07/01/18) Home Medications Home Medications Active Reported Buprenorphine Hcl 8 Mg Tab.subl 2 Tab SL DAILY PRN Benazepril HCl 20 Mg Tablet 1 Tab PO DAILY Flomax* (Tamsulosin HCl) 0.4 Mg Cap.sr.24h 1 Cap PO BID 30 Days Betapace* (Sotalol HCl) 80 Mg Tablet 80 Mg PO BID Breztri Aerosphere Inhaler (Budesonide/Glycopyr/Formoterol) 160 Mcg-9 Mcg-4.8 Mcg/Actuation Hfa.aer.ad 2 Puffs INH Q12H 30 Days [pro air respiclick] 2 Puff INH Q4H Montelukast Sodium 10 Mg Tablet 1 Tab PO DAILY Silvadene (Silver Sulfadiazine) 1 % Cream..g. 1 Applic TOP DAILY apply to affected area(s) Lasix (Furosemide) 40 Mg Tablet 1 Tab PO DAILY Ibandronate Sodium 150 Mg Tablet 1 Tab PO Q30D 30 Days Vitamin C (Ascorbic Acid) 250 Mg Tablet 1 Tab PO DAILY 30 Days [calcium] 600 Mg PO DAILY Eliquis (Apixaban) 5 Mg Tablet 1 Tab PO DAILY 30 Days Past Medical History Past Medical History Reviewed Past Surgical History Surgical History Comment Reviewed Past Social History Social History Comment Reviewed ROS ROS All other systems non-contributory Exam Vitals: Vital Signs Date Time Temp Pulse Resp B/P (MAP) Pulse Ox O2 Delivery O2 Flow Rate FiO2 01/27/25 22:29 77 01/27/25 21:55 18 01/27/25 18:10 139/64 (89) 95 01/27/25 15:00 98.5 Nasal Cannula 2.0 01/27/25 08:58 28 RRR w/o murmur, no JVD CTAB, no wheezes +BS, NT 2+ Edema to knees, scrotal edema Diagnostic Data Last Recorded Lab Results: 01/27/25 0700 01/27/25 1631 Diagnostic Data: I & O 01/28/25 07:00 Intake Total 400 ml Output Total 1500 ml Balance -1100 ml Intake Oral 400 ml Output Urine Total 1500 ml Laboratory Tests Test 01/26/25 01:27 Prothrombin Time 15.1 SECONDS (9.0-12.0) H INR International Normalized Ratio 1.5 INR Coagulation Comments Additional Plan 1. Volume Overload and Anasarca (Generalized Edema): There is clear evidence of severe volume overload, with anasarca, scrotal edema, pleural effusions, and moderate pericardial effusion. The proBNP is markedly elevated, and imaging confirms fluid overload. The etiology is multifactorial: underlying CKD with reduced ability to excrete sodium and water, possible heart failure with preserved ejection fraction (HFpEF), and hypoalbuminemia (albumin 2.2) likely from chronic disease and possible protein malnutrition. Continue IV furosemide, consider increasing dose or adding thiazide-type diuretic metolazone for synergistic effect if diuresis is insufficient. Strict input/output monitoring and daily weight. Monitor for signs of intravascular depletion,hypotension, rising creatinine. Consider albumin infusion if diuresis is limited by hypoalbuminemia and intravascular depletion. Sodium 2 grams and fluid 1.7 liters restriction. Monitor for electrolyte disturbances, especially potassium and magnesium. 2. 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 No evidence of acute glomerulonephritis or nephritic syndrome on urinalysis. Urine sodium is elevated (122), suggesting impaired tubular reabsorption, possibly due to diuretic use or intrinsic renal disease. Continue to optimize volume status with cautious diuresis. Hold or reduce nephrotoxic agents and renin-angiotensin system inhibitors (benazepril) if hypotension or worsening renal function. Monitor renal function and electrolytes daily. Assessed for reversible causes (e.g., infection, obstruction, medication toxicity). 3. Atrial Fibrillation with RVR: History of atrial fibrillation, now with RVR on presentation. Sotalol and apixaban are part of home regimen. Rate control is essential, but caution is needed due to hypotension and renal dysfunction. Continue rate control with sotalol if hemodynamically stable and renal function allows; consider alternative agents (e.g., beta-tyler, diltiazem) if sotalol is contraindicated. Continue anticoagulation with apixaban for stroke prevention, monitor for bleeding given anemia and renal dysfunction. 4. Anemia (Microcytic, Chronic): Hemoglobin is 10.1 with MCV 62, ferritin 10, consistent with iron deficiency anemia, likely multifactorial (chronic disease, CKD, possible GI losses). No evidence of acute bleeding thus far. Start intravenous iron supplementation 250 mg in 4 doses (oral iron likely ineffective in advanced CKD and with low ferritin). Monitor for response and consider erythropoiesis-stimulating agent if anemia persists and no contraindications. Evaluate for GI blood loss with fecal occult blood and reticulocyte count. 5. Electrolyte Abnormalities: Potassium is elevated at 5.4, likely due to CKD, SANDY inhibitor. Magnesium is within normal limits. Monitor potassium closely; consider potassium binders if levels rise above 5.5 mmol/L. Hold or reduce SANDY inhibitor (benazepril) if potassium remains elevated or renal function worsens. Avoid potassium-sparing diuretics. 6. Hypoalbuminemia: Albumin is low at 2.2, likely from chronic disease, malnutrition, and possible protein loss. This can contribute to edema and poor diuretic response. Assess nutritional status and provide dietary consult. Consider albumin infusion if diuresis is in adequate and intravascular depletion is a concern. 7. Scrotal Edema and Hydroceles: Imaging confirms extensive scrotal edema and hydroceles, likely secondary to severe systemic volume overload and hypoalbuminemia. Primary management is aggressive diuresis and volume control. Urology consult if hydroceles become tense, painful, or compromise skin integrity. GEORGIA BRINK III DO Jan 28, 2025 00:14
[2025-01-28 07:06] LABS: MEAN PLATELET VOLUME 9.1 FL (7.4-10.4)
[2025-01-28] MEDS: iron dextran complex inj. 100 MG in normal saline 100ml IV soln 100 ML IV SCH (07:55)
[2025-01-28] MEDS: acetaZOLAMIDE IV 500mg inj IV SCH (07:55)
[2025-01-28 08:05] LABS: RED CELL DISTRIBUTION WIDTH 22.3 % (11.5-14.5)
--- NOTE | 2025-01-28 08:10 | RADIOLOGY REPORT ---
CHEST RADIOGRAPH Indication: pleural effusion Technique: Single frontal view of the chest was obtained Comparison: DI CHEST,SINGLE VIEW on DOS: 01/27/25, CHEST 1 VIEW on DOS: 01/25/25 FINDINGS: Lines and Tubes: None Lungs: No focal consolidation. Pleura: No effusion. No pneumothorax. Cardiomediastinal contours: Cardiomegaly. Bones: No acute osseous abnormality. IMPRESSION: Cardiomegaly with CHF.
[2025-01-28 09:25] LABS: PLATELET ESTIMATE NORMAL
[2025-01-28 09:30] LABS: ELLIPTOCYTES FEW
[2025-01-28] MEDS: mineral oil 133ml enema RC PRN (09:35)
[2025-01-28 11:05] LABS: CREATININE 1.42 MG/DL (0.60-1.10); PRO BRAIN NATRIURETIC PEPTIDE 5655 PG/ML (0-450); TOTAL CARBON DIOXIDE 33.5 MMOL/L (24-32); eCRCL 48 ML/MIN; eGFR 48 ML/MIN
[2025-01-28 11:22] LABS: LACTATE DEHYDROGENASE 442 U/L (85-227)
--- NOTE | 2025-01-28 13:04 | PROGRESS NOTE ---
Daily Progress Note Providers to CC ~ Antibiotic Timeout Antibiotic Ordered?: No Subjective No acute events overnight. Patient examined at bedside. No new complaints. Patient denies chest pain, sob, palpitations, n/v/d. Reports lower abdominal pain. Tele AFib in 80s. Vss, labs notable for downtrending Cr on diuretics. TTE shows LVEF 60-65% RVSP 42mmHg, dilated left atrium, moderate tricuspid regurgitation, mild circumferential pericardial effusion. Scrotal edema improved from previous days. No ulceration/drainage. Objective Vital Signs Date Time Temp Pulse Resp B/P (MAP) Pulse Ox O2 Delivery O2 Flow Rate FiO2 01/28/25 11:00 97.3 73 20 128/59 (82) 99 Nasal Cannula 2.0 01/28/25 09:57 28 Result Diagram: 01/28/25 0611 01/28/25 0611 Physical Exam General: Generalized weakness, fatigued, A&Ox 3, NAD HEENT: Normocephalic, PERRLA Neck: Supple, trachea midline, no JVD Chest: Clear to auscultation bilaterally Cardiovascular: RRR, S1&S2 GI: Soft and nontender : improving edema b/l scrotum, no ulceration or drainage Extremities: No cyanosis/clubbing/or edema GENERAL MANAGER FOOD: CN II-XII intact, no focal deficits Musculoskeletal: No paraspinal muscle tenderness, no muscle spasm Skin: Warm and intact Coagulation Studies Laboratory Tests Test 01/26/25 01:27 Prothrombin Time 15.1 SECONDS (9.0-12.0) H INR International Normalized Ratio 1.5 INR Coagulation Comments Problem\Assessment\Plan Assessment & Plan Atrial fibrillation w/ RVR -Eliquis, metoprolol tart, amiodarone Acute decompensated diastolic heart failure, LVEF 60% Acute hypoxic respiratory failure likely 2/2 CHF Prerenal ALEXYS on CKD- not POA Acute urinary retention- POA Echocardiogram done in November 2024- LVEF 60%,Right ventricle normal size with borderline dilation, decreased systolic function without collapse. 01/27: pBNP 7902 to 5370, 2L O2, anasarca, started on diuretics which are discontinued due to worsening renal function; consulted sap plant maintenance consultant Dr. Blancas TSH wnl, afebrile, serum lytes unremarkable, Well's score 1.5 Testicular US shows extensive b/l scrotal edema, moderate to large right and moderate left hydroceles with normal flow on Doppler, no focal masses. -01/28: TTE shows LVEF 60-65% RVSP 42mmHg, dilated left atrium, moderate tricuspid regurgitation, mild circumferential pericardial effusion. Anemia, microcytic Fe-deficiency anemia 01/27: start iron infusion Code Status: Full Code DVT prophylaxis: Eliquis Date of Service: Jan 28, 2025 Billing Provider: RISHI ESCUDERO Common Visit Codes: 94841-[id number] INP/OBS CARE(HIGH) RISHI ESCUDERO Jan 28, 2025 13:04
--- NOTE | 2025-01-28 16:03 | PROGRESS NOTE ---
Progress Note Dictate Providers to CC ~ Central Line/PICC still needed: No Appiah Indications Met/Not Met: F/C Indications Met Antibiotic Ordered?: N/A Subjective Subjective An 89-year-old man with a history of atrial fibrillation, chronic kidney disease (CKD), chronic lower extremity edema, anemia, and hypotension presented with worsening generalized swelling, including scrotal edema, and shortness of breath. He was found to be in atrial fibrillation with rapid ventricular response (RVR) and hypoxemia requiring supplemental oxygen. He was transferred for higher level of care. Home medications include sotalol, furosemide, ibandronate, tamsulosin, apixaban, and benazepril. Objective Vitals Vital Signs Date Time Temp Pulse Resp B/P (MAP) Pulse Ox O2 Delivery O2 Flow Rate FiO2 01/28/25 20:15 85 120/63 (82) 01/28/25 19:22 18 Nasal Cannula 2.0 01/28/25 15:00 97.0 95 01/28/25 09:57 28 Lab Results: 01/28/25 0611 01/28/25 0611 Objective Vital Signs: As above General: Normal body habitus, no acute distress. Skin: No rashes, lumps, ulcers, blisters, purpura or petechiae HEENT: Anicteric sclera, MITCHELL Neck: Supple and nontender without enlargement of the thyroid, or lymphadenopathy. Chest: Normal size and shape, no tenderness, CTA bilaterally Heart: Regular. No jugular venous distention, S1 and S2 heard , no gallop Abdomen: Soft and non tender no organomegaly,BS+ Extremities: extensive anasarca and scrotal edema with bilateral hydrocele Neuro: Nonfocal. Coagulation Studies Laboratory Tests Test 01/26/25 01:27 Prothrombin Time 15.1 SECONDS (9.0-12.0) H INR International Normalized Ratio 1.5 INR Coagulation Comments Advance Care Planning Advanced Care plannin - 30 Minutes Problem\Assessment\Plan Problems/Diagnosis: (1) ALEXYS (acute kidney injury) Assessment & Plan: creatinine has remained stable whilehe is diuresing well so far. (2) Cardiorenal syndrome with renal failure Assessment & Plan: on afterload reducers. (3) Atrial fibrillation with RVR Assessment & Plan: rate controlled. (4) Acute on chronic heart failure (5) Microcytic anemia Assessment & Plan: retacrit Problem Qualifiers (1) Acute on chronic heart failure: Qualified Codes: I50.813 - Acute on chronic right heart failure MORENA MOCK MD Jan 28, 2025 16:03
[2025-01-29 02:00] VITALS: BP 97/74; PULSE 77; RESP 13; TEMP 97.5; O2SAT 100
[2025-01-29 06:00] VITALS: BP 144/79; PULSE 85; RESP 17; TEMP 98; O2SAT 98
[2025-01-29 06:43] LABS: MEAN PLATELET VOLUME 8.8 FL (7.4-10.4); RED CELL DISTRIBUTION WIDTH 23.0 % (11.5-14.5)
[2025-01-29 07:18] LABS: CREATININE 1.47 MG/DL (0.60-1.10); TOTAL CARBON DIOXIDE 35.2 MMOL/L (24-32); eCRCL 46 ML/MIN; eGFR 46 ML/MIN
[2025-01-29 07:49] LABS: PLATELET ESTIMATE DECREASED
[2025-01-29 07:50] LABS: ELLIPTOCYTES 1+
[2025-01-29 08:00] VITALS: RESP 17; O2SAT 98
[2025-01-29] MEDS: vancomycin/NS 1 GM ADD-VANTAGE 250 ML IV SCH (10:08)
[2025-01-29] MEDS: EPOETIN ALFA-EPBX 20,000 UNIT/ML 1 ML MDV SQ ONE (10:32)
[2025-01-29 11:00] VITALS: BP 121/77; PULSE 74; RESP 18; TEMP 97.8; O2SAT 97
[2025-01-29] MEDS: ondansetron/PF 4mg/2ml inj IV PRN (13:02)
--- NOTE | 2025-01-29 13:37 | DISCHARGE SUMMARY ---
Discharge Summary Providers to CC ~ Discharge Summary Admission Diagnosis: Afib with RVR Hospital Course DATE OF ADMISSION: 01/26/25 DATE OF DISCHARGE: 01/29/25 Discharge Diagnosis\\Comment: Atrial fibrillation w/ RVR likely 2/2 hypoxia Acute decompensated diastolic heart failure, LVEF 60% Acute hypoxic respiratory failure likely 2/2 CHF Prerenal ALEXYS on CKD- not POA Acute urinary retention- POA UTI Anemia, microcytic Fe-deficiency anemia Generalized weakness Operations\\Procedures: None Consultants: Twisting Frame Operator Kam Laguna/ George Villatoro Complications: None Condition on DC: Stable for transfer Discharge Summary: History of Present Illness From H&P: "89-year-old male with a past medical history of hypotension, asthma, atrial fibrillation, anemia, chronic kidney disease, edema of lower limbs, stasis dermatitis lower extremities, has presented to the ED of [facility] with chief complaints of generalized swelling and shortness of breath. This patient is a transfer from [facility]. Patient reports that his scrotum swelled up to a point that he was unable to walk since a week. He was found to have rapid AFib with RVR in [place]. Patient is normally not on oxygen, but his oxygen saturation was on 4 L at 94%. Patient was then transferred to our facility for further workup and care. Patient currently in sinus rhythm. His troponin was negative. He denies any chest pain, abdominal pain, nausea, vomiting, palpitations, headache, blurring of vision, burning micturition, melena." Hospital Course Diagnostic findings were notable for renal insufficiency, elevated NT-pBNP, hypoxia requiring supplemental oxygen, physical exam findings of anasarca, atrial fibrillation with rapid ventricular rate, TTE revealing LVEF 60-65% RVSP 42mmHg, dilated left atrium, moderate tricuspid regurgitation, mild circumferential pericardial effusion without hemodynamic compromise. A testicular ultrasound revealed extensive bilateral scrotal edema, without e vidence of focal masses and physical exam findings of ulceration sore necrosis. CT revealed anasarca and scrotal edema with bilateral varicoceles, negative hydronephrosis. Pertinent negative findings were unremarkable TSH, unremarkable serum lytes, Well's score of 1.5, no fever. Case was consulted with drilling field operator Dr. Blancas. Patient was treated with GDMT including diuretics as tolerated, scrotal support, iron infusion. Patient responded well to diuresis as reflected by clinical improvement of anasarca and scrotal edema. Patient did not experience further complications throughout the entire hospital stay and remained clinically and hemodynamically stable. Patient was seen and examined on the day of discharge. On day of discharge, vss and labs notable for stable renal function. All labs, diagnostic workups, discharge plan discussed with patient in details during visit before discharge. All questions and concerns answered to the best of my professional knowledge. Patient is to be discharged to rehab for continued management. Physical Exam General: Generalized weakness, fatigued, A&Ox 3, NAD HEENT: Normocephalic, PERRLA Neck: Supple, trachea midline, no JVD Chest: Clear to auscultation bilaterally Cardiovascular: RRR, S1&S2 GI: Soft and nontender : improving edema b/l scrotum, no edema, ulceration, necrosis, or drainage Extremities: No cyanosis/clubbing/or edema HOUSE STEWARD/STEWARDESS: CN II-XII intact, no focal deficits Musculoskeletal: No paraspinal muscle tenderness, no muscle spasm Skin: Warm and intact *Problems/Diagnosis: (1) ALEXYS (acute kidney injury) (2) Cardiorenal syndrome with renal failure (3) Atrial fibrillation with RVR Status: Acute (4) Acute on chronic heart failure Status: Acute (5) Microcytic anemia Status: Acute Total Time Spent on D/C: > 30 Minutes Date of Service: Jan 29, 2025 Billing Provider: RISHI ESCUDERO Common Visit Codes: 12157-MHX/OBS DISCH DAY >30min Problem Qualifiers (1) Acute on chronic heart failure: Qualified Codes: I50.813 - Acute on chronic right heart failure RISHI ESCUDERO Jan 29, 2025 13:37
--- NOTE | 2025-01-29 16:48 | PROGRESS NOTE ---
Progress Note Dictate Providers to CC ~ Central Line/PICC still needed: No Appiah Indications Met/Not Met: F/C Indications Not Met Antibiotic Ordered?: N/A Subjective Subjective The patient responded to aggressive diuresis obvernight. I saw him today and he feels better. But he also recalls some anxiety episode last night. Before I could open the chart and document, I understnad that he has been already discharged to SNF. I have no clue as of what is the plan as far as diuretics and follow up renal function tests that were ordered by the discharging physician. He needs a closer follow up with with his primary care physician and tailormade diuretics, failing which, he is for sure going to bounce back and in future, would appreciate a courtesy call with us, prior to planning discharge. Also not sure, what was being planned to address the anemia as outpatient. Objective Vitals Vital Signs Date Time Temp Pulse Resp B/P (MAP) Pulse Ox O2 Delivery O2 Flow Rate FiO2 01/29/25 11:00 97.8 74 18 121/77 (92) 97 Nasal Cannula 2.0 01/29/25 08:00 28 Lab Results: 01/29/25 0617 01/29/25 0617 Objective Vital Signs: As above General: Normal body habitus, no acute distress. Skin: No rashes, lumps, ulcers, blisters, purpura or petechiae HEENT: Anicteric sclera, MITCHELL Neck: Supple and nontender without enlargement of the thyroid, or lymphadenopathy. Chest: Normal size and shape, no tenderness, CTA bilaterally Heart: Regular. No jugular venous distention, S1 and S2 heard , no gallop Abdomen: Soft and non tender no organomegaly,BS+ Extremities: extensive anasarca and scrotal edema with bilateral hydrocele Neuro: Nonfocal. Coagulation Studies Laboratory Tests Test 01/26/25 01:27 Prothrombin Time 15.1 SECONDS (9.0-12.0) H INR International Normalized Ratio 1.5 INR Coagulation Comments Advance Care Planning Advanced Care plannin - 30 Minutes Problem\Assessment\Plan Problems/Diagnosis: (1) ALEXYS (acute kidney injury) Assessment & Plan: creatinine has remained stable whilehe is diuresing well so far. creaitnine came down today. He had an imppressive pulmonary infiltrate in the CXR yesterday (2) Cardiorenal syndrome with renal failure Assessment & Plan: on afterload reducers. (3) Atrial fibrillation with RVR Assessment & Plan: rate controlled. (4) Acute on chronic heart failure (5) Microcytic anemia Assessment & Plan: retacrit was given yesterday. Problem Qualifiers (1) Acute on chronic heart failure: Qualified Codes: I50.813 - Acute on chronic right heart failure MORENA MOCK MD Jan 29, 2025 16:48
--- NOTE | 2025-01-30 18:48 | CARDIOLOGY REPORT ---
APPROVED REPORT EXAM: Comprehensive 2D, Doppler, and color-flow Echocardiogram. Patient Location: [facility] Blood Pressure: 117/75 mmHg Heart Rate: 74 bpm Rhythm: Atrial Fibrillation Indications Pericardial Effusion Rule Out Tamponade ProBNP: 5370 HX of Atrial Fibrillation RADIO ENGINEERING TEACHER: Maranda Cohen MD Previous ECHO: Unavailable 2D Dimensions LA Diam4.4 cm IVSd 0.7 (0.7-1.1cm) LVDd 4.4 cm PWd 1.1 (0.7-1.1cm) IVSs 1.3 (0.8-1.2cm) LVDs 2.3 (2.5-4.0cm) PWs 1.5 (0.8-1.2cm) LVOT Diameter 1.81 (1.8-2.4cm) LVEF(%) 79.2 (>50%) Ao Asc Diam.3.10 cm IVC 25.71 mmFS (%) 47.6 % SV 68.1 ml CO 10.3 L/min M-Mode Dimensions Left Atrium(MM) 3.94 (2.5-4.0cm) Aortic Root 3.80 (2.2-3.7cm) Aortic Cusp Exc 0.92 (1.5-2.0cm) MV EPSS 0.5 (<0.5cm) Aortic Valve AoV Peak Brooks. 140.2 cm/s AoV VTI 28.1 cm AO Peak GR. 7.9 mmHg AO Mean GR. 4 mmHg LVOT VTI 24.36 cm LVOT Peak Brooks. 111.2 cm/s TAMI(VTI)/BSA 2.22 cm2/m2 TAMI (VTI) 2.22 cm2 Tricuspid Valve TR P. Velocity 283 cm/s RAP ESTIMATE 10 mmHg TR Peak Gr. 32 mmHg RVSP 42 mmHg LEFT VENTRICLE Normal LV size and wall thickness. Overall systolic function is normal. LVEF is 60-65%. RIGHT VENTRICLE Right ventricle is mildly dilated with reduced function. Elevated right heart pressures with an RVSP of 42 mmHg. ATRIA Left atrium is mildly dilated. AORTIC VALVE Trileaflet AV appears mildly sclerotic without stenosis. No insufficiency. MITRAL VALVE Mild mitral annular calcification without stenosis. Mild regurgitation. TRICUSPID VALVE The tricuspid valve is normal in structure with mild to moderate regurgitation. PULMONIC VALVE Pulmonic valve is grossly normal in structure with physiologic insufficiency. GREAT VESSELS The aortic root is normal in size. The ascending aorta is normal in size. IVC is dilated and collapse s less than 50% with inspiration. PERICARDIUM Mild circumferential pericardial effusion. No echo indications of pericardial tamponade. Ascites is p resent. Other Information Study Quality: Adequate Conclusion Normal LV size and wall thickness. Overall systolic function is normal. LVEF is 60-65%. Right ventricle is mildly dilated with reduced function. Elevated right heart pressures with an RVSP of 42 mmHg. Left atrium is mildly dilated. Trileaflet AV appears mildly sclerotic without stenosis. No insufficiency. Mild mitral annular calcification without stenosis. Mild regurgitation. The tricuspid valve is normal in structure with mild to moderate regurgitation. Pulmonic valve is grossly normal in structure with physiologic insufficiency. Mild circumferential pericardial effusion. No echo indications of pericardial tamponade.
[2025-01-30] MEDS ORDERED: VANCOMYCIN LEVEL IV ONE (19:30)
== END 2025-01-29 14:33 | DRG 291 ==
LOC: ER 20:40 → ED HOLD 01-26 00:12 → EDBEDREQ 01-26 03:24 → PCU 3S 01-26 04:09
PROVIDERS: ADMIT Internal Medicine Sleep Medicine; ATTEND Nurse Practitioner Family
PROC: 05HB33Z Insertion of Infusion Device into Right Basilic Vein, Percutaneous Approach (ICD-10-PCS; principal; 2025-01-27)
PROC: B54MZZA Ultrasonography of Right Upper Extremity Veins, Guidance (ICD-10-PCS; 2025-01-27)
DX: I13.0 Hypertensive heart and chronic kidney disease with heart failure and stage 1 through stage 4 chronic kidney disease, or unspecified chronic kidney disease (principal); I50.33 Acute on chronic diastolic (congestive) heart failure; J96.01 Acute respiratory failure with hypoxia; N17.9 Acute kidney failure, unspecified; N39.0 Urinary tract infection, site not specified; I48.91 Unspecified atrial fibrillation; E78.00 Pure hypercholesterolemia, unspecified; F41.9 Anxiety disorder, unspecified; J45.909 Unspecified asthma, uncomplicated; D50.9 Iron deficiency anemia, unspecified; N18.9 Chronic kidney disease, unspecified; I87.2 Venous insufficiency (chronic) (peripheral); R33.9 Retention of urine, unspecified; I36.1 Nonrheumatic tricuspid (valve) insufficiency; I86.1 Scrotal varices; Z79.899 Other long term (current) drug therapy
CPT/HCPCS: 36410; 36415; 36600; 71045; 74176; 76870; 76937; 80048; 80053; 80061; 81001; 82436; 82570; 82728; 82803; 82945; 83036; 83540; 83615; 83735; 83880; 83935; 84132; 84133; 84145; 84156; 84300; 84439; 84443; 84484; 85008; 85018; 85025; 85610; 86140; 87077; 87081; 87088; 87186; 93005; 93306; 93976; 96365; 99291; A4615; A5200; C1751; G0378; J1120; J1750; J1938; J2405; J3373; J3490; J7040; Q4081